=== PATIENT | male | born 1965 | race Caucasian/White ===

== ENCOUNTER 2018-01-10 17:22 | Emergency (ER) | payer SELFPAY ==
[~2018-01-10] VITALS: Ht 172.7 cm; Wt 80.0 kg
[2018-01-10] MEDS ORDERED: SODIUM CHLORIDE 0.9% 1,000 ML IV ONE (17:53)
[2018-01-10] MEDS ORDERED: MIDAZOLAM HCL 2 MG/2 ML VIAL IM ONE (18:00)
[2018-01-10 18:35] LABS: BASOPHILS % 0.9 % (0.0-2.0); EOSINOPHILS % 0.1 % (0.0-5.0); HEMATOCRIT. 35.6 % (42.0-52.0); HEMOGLOBIN. 10.9 g/dL (14.0-18.0); LYMPHOCYTES % 7.3 % (20.0-50.0); MEAN CORPUSCULAR HEMOGLOBIN 21.2 pg (28.0-32.0); MEAN CORPUSCULAR VOLUME 69.3 fL (80.0-94.0); MEAN PLATELET VOLUME 8.7 fl (7.4-10.4); MONOCYTES % 6.6 % (2.0-8.0); NEUTROPHILS % 85.1 % (40.0-76.0); PLATELET 357 x1000/uL (130-400); RED BLOOD CELL COUNT 5.14 mill/uL (4.7-6.1); RED CELL DISTRIBUTION WIDTH 19.5 % (11.6-14.6)
[2018-01-10 18:41] LABS: CHLORIDE 109 mEq/L (98-107)
[2018-01-10 18:44] LABS: ETHANOL BLOOD < 10 mg/dL
[2018-01-10 19:09] LABS: PLATELET ESTIMATE NORMAL
[2018-01-10 22:45] VITALS: BP 92/54
== END 2018-01-10 22:45 | disposition home or self-care (01) ==
LOC: ER 19:35
DX: G92 Toxic encephalopathy (principal); F15.10 Other stimulant abuse, uncomplicated; I10 Essential (primary) hypertension
CPT/HCPCS: 36415; 80048; 80307; 80329; 85025; 96360; 96372; 99284; G0482; J2250; J7030; Z7610